=== PATIENT | male | born 1950 | race African-American/Black ===

== ENCOUNTER 2021-06-09 10:39 | Inpatient (IN) | payer OTHER ==
[~2021-06-09] VITALS: Ht 180.3 cm; Wt 66.0 kg
[~2021-06-09 10:39] MED LIST: METOPROLOL TARTRATE 25 MG TABLET GT SCH
--- NOTE | 2021-06-09 10:55 | NUR ---
[facility] FOR NOTED LOW O2 SATS AND TACHYCARDIA. PER EMS RECENTLY DISCHARGE [facility] OTHER HOSPITAL FOR PNA/SEPSIS. A/O X0. RECEIVED THE PATIENT IS ON OXYGEN NON-REBREATHER MASK 15L/MIN. ATTACHED THE PATIENT TO THE MONITOR. WARM BLANKET PROVIDED FOR COMFORT. WILL CONTINUE TO MONITOR THE PATIENT.
[2021-06-09] MEDS ORDERED: AMIN30LI2 GT (11:16)
[2021-06-09] MEDS ORDERED: ZINC1CAP3 GT (11:16)
[2021-06-09] MEDS ORDERED: MIDO10TA GT (11:16)
[2021-06-09] MEDS ORDERED: MULT-447 GT (11:16)
[2021-06-09] MEDS ORDERED: LACT-96 GT (11:16)
[2021-06-09] MEDS ORDERED: ASCO-352 GT (11:16)
[2021-06-09] MEDS ORDERED: BISA10SU11 RC (11:16)
[2021-06-09] MEDS ORDERED: SENN-261 GT (11:16)
[2021-06-09] MEDS ORDERED: NA P133E RC (11:16)
[2021-06-09] MEDS ORDERED: ACET-868 GT (11:16)
[2021-06-09] MEDS ORDERED: ACET-2605 GT (11:16)
[2021-06-09] MEDS ORDERED: MAGN400O6 GT (11:16)
--- NOTE | 2021-06-09 11:30 | NUR ---
unable to start iv. nursing sup called. midline nurse eta 1300
[2021-06-09] MEDS ORDERED: PIPERACILLIN /TAZOBACTAM 3.375 G in IV D5W 50 ML IV ONE (12:00)
[2021-06-09] MEDS ORDERED: CEFEPIME 1 GM in IV D5W 50 ML IV ONE (12:00)
[2021-06-09] MEDS ORDERED: IV NS 0.9% 2,000 ML IV ONE (13:30)
--- NOTE | 2021-06-09 13:42 | NUR ---
MIDLINE ORDERED PER DR LAW. THE ORDER IS READ BACK, VERIFIED. NOTED AND CARRIED OUT.
[2021-06-09 14:10] LABS: BASOPHILS % (AUTO) 0.3 % (0.0-2.0); MONOCYTES # (AUTO) 1.2 K/uL (0.1-1.30); NEUTROPHILS # (AUTO) 7.1 K/uL (1.8-8.9)
--- NOTE | 2021-06-09 14:19 | NUR ---
COVID ANTIGEN SWAB DONE AND SENT TO THE LAB.
--- NOTE | 2021-06-09 14:19 | NUR ---
THE PATIENT IS PLACED ON OXYGEN AT 10L/MIN VIA SIMPLE MASK AND SATURATION IS MAINTAINING AT 100%. WILL CONTINUE TO MONITOR THE PATIENT.
[2021-06-09 14:25] LABS: CALCIUM, SERUM 8.4 mg/dL (8.5-10.1); CARBON DIOXIDE 27 mmol/L (21-32); CHLORIDE 115 mmol/L (98-107); CREATININE 2.9 mg/dL (0.6-1.3); GLUCOSE 149 mg/dL (74-106); POTASSIUM 3.5 mmol/L (3.5-5.1); SODIUM SERUM 153 mmol/L (136-145); UREA NITROGEN, BLOOD 71 mg/dL (7-18)
--- NOTE | 2021-06-09 14:30 | NUR ---
COVID ANTIGEN SWAB DONE AND SENT TO THE LAB
[2021-06-09 15:12] LABS: C-REACTIVE PROTEIN 21.8 mg/dL (0.0-0.9)
[2021-06-09 15:16] LABS: EOSINOPHILS % (AUTO) 0.5 % (0.0-6.0); HEMATOCRIT 21 % (39-51); LYMPHOCYTES # (AUTO) 1.8 K/uL (0.8-4.8); LYMPHOCYTES % (AUTO) 17.6 % (20.0-44.0); MEAN CORPUSCULAR HGB CONC 32 g/dl (31.0-36.0); MEAN CORPUSCULAR VOLUME 77 fL (80-96); MONOCYTES % (AUTO) 11.7 % (2.0-12.0); NEUTROPHILS % (AUTO) 69.9 % (43.0-81.0); PLATELET COUNT (AUTO) 400 K/uL (150-450); RED BLOOD CELL COUNT(AUTO) 2.73 MIL/uL (4.5-6.0); WHITE BLOOD COUNT (AUTO) 10.1 K/uL (4.3-11.0)
[2021-06-09 15:25] LABS: CALCIUM, SERUM 8.4 mg/dL (8.5-10.1); POTASSIUM 3.6 mmol/L (3.5-5.1)
[2021-06-09 15:27] LABS: HEMOGLOBIN 6.6 g/dL (13.5-17.5)
[2021-06-09 15:32] LABS: ALBUMIN 1.8 g/dL (3.4-5.0); BILIRUBIN,TOTAL 0.5 mg/dL (0.2-1.0)
[2021-06-09 15:58] LABS: LYMPHOCYTES % (MANUAL) 20 % (16-48); MONOCYTES % (MANUAL) 10 % (0-11.0); NEUTROPHILS % (MANUAL) 70 (42-76)
--- NOTE | 2021-06-09 16:26 | NUR ---
DR CEVALLOS MADE AWARE OF HR 126 AND BP 113/81. NO NEW ORDERS AT THIS TIME.
--- NOTE | 2021-06-09 16:34 | NUR ---
WAITING FOR THE PHARMACY TO VERIFY METOPROLOL ORDER.
--- NOTE | 2021-06-09 16:34 | NUR ---
RECEIVED ANORDER FROM DR CEVALLOS: METOPROLOL 25 MG GT ONCE. THE ORDER IS READ BACK, VERIFIED. NOTED AND CARRIED OUT.
[2021-06-09] MEDS ORDERED: METOPROLOL TARTRATE 25 MG TABLET GT ONE (17:00)
[2021-06-09] MEDS ORDERED: METOPROLOL TARTRATE 25 MG TABLET ONE (17:07)
[2021-06-09] MEDS ORDERED: BISACODYL SUPP (10 MG) 10 MG/SUPP.RECT SUPP.RECT RC PRN (17:30)
[2021-06-09] MEDS ORDERED: MAGNESIUM HYDROXIDE 30 ML UDC GT PRN (17:30)
[2021-06-09] MEDS ORDERED: NA PHOS,M-B/NA PHOS,DI-BA 1 EA ENEMA RC PRN (17:30)
[2021-06-09 18:00] LABS: IRON, SERUM 14 ug/dl (50-175); TOTAL IRON BINDING CAPACITY 123 ug/dl (250-450)
[2021-06-09] MEDS ORDERED: VANCOMYCIN 1 GM in IV D5W 250 ML IV SCH (18:00)
--- NOTE | 2021-06-09 19:10 | NUR ---
VANCO AND ZOSYN DUE AT 1800 NOT ADMINISTERED YET BECAUSE THE PATIENT IS GETTING BLOOD TRANSFUSION. WILL ADMINISTER THE MEDS ONCE THE BLOOD TRANSFUSION IS DONE. DR ECVALLOS AWARE. WILL ENDORSE TO SWATCH PASTER.
[2021-06-09] MEDS ORDERED: PIPERACILLIN /TAZOBACTAM 3.375 G VIAL IV ONE (19:46)
[2021-06-09] MEDS ORDERED: VANCOMYCIN 1 GM VIAL ONE (19:46)
[2021-06-09] MEDS: PIPERACILLIN /TAZOBACTAM 2.25 G in IV D5W 50 ML IV SCH (19:52)
--- NOTE | 2021-06-09 19:52 | NUR ---
REPORT GIVEN TO NURSE VU FOR MARTIN
[2021-06-09] MEDS: SENNOSIDES 8.6 MG TABLET GT SCH (22:06)
[2021-06-10] MEDS: PIPERACILLIN /TAZOBACTAM 2.25 G in IV D5W 50 ML IV SCH ×3 (01:57→16:40)
[2021-06-10 05:09] LABS: BASOPHILS # (AUTO) 0.1 K/uL (0.0-0.2); BASOPHILS % (AUTO) 0.5 % (0.0-2.0); EOSINOPHILS % (AUTO) 0.9 % (0.0-6.0); HEMATOCRIT 22 % (39-51); HEMOGLOBIN 7.1 g/dL (13.5-17.5); LYMPHOCYTES # (AUTO) 1.8 K/uL (0.8-4.8); LYMPHOCYTES % (AUTO) 17.5 % (20.0-44.0); MEAN CORPUSCULAR HGB CONC 32 g/dl (31.0-36.0); MEAN CORPUSCULAR VOLUME 78 fL (80-96); MONOCYTES # (AUTO) 1.1 K/uL (0.1-1.30); MONOCYTES % (AUTO) 10.9 % (2.0-12.0); NEUTROPHILS # (AUTO) 7.2 K/uL (1.8-8.9); NEUTROPHILS % (AUTO) 70.2 % (43.0-81.0); PLATELET COUNT (AUTO) 385 K/uL (150-450); RED BLOOD CELL COUNT(AUTO) 2.85 MIL/uL (4.5-6.0); WHITE BLOOD COUNT (AUTO) 10.2 K/uL (4.3-11.0)
[2021-06-10 05:21] LABS: ALBUMIN 1.5 g/dL (3.4-5.0); ALKALINE PHOSPHATASE 74 U/L (46-116); ASPARTATE AMINOTRANSFERASE 18 U/L (15-37); BILIRUBIN,TOTAL 1.1 mg/dL (0.2-1.0); CALCIUM, SERUM 8.2 mg/dL (8.5-10.1); CARBON DIOXIDE 24 mmol/L (21-32); CHLORIDE 117 mmol/L (98-107); GLUCOSE 122 mg/dL (74-106); POTASSIUM 3.6 mmol/L (3.5-5.1); SODIUM SERUM 152 mmol/L (136-145); TOTAL PROTEIN, SERUM 6.7 g/dL (6.4-8.2)
[2021-06-10 05:23] LABS: ALANINE AMINOTRANSFERASE < 6 U/L (12-78)
[2021-06-10 05:24] LABS: UREA NITROGEN, BLOOD 87 mg/dL (7-18)
--- NOTE | 2021-06-10 05:25 | NUR ---
BUN 87
[2021-06-10 05:29] LABS: THYROID STIMULATING HORMONE 1.555 uIU/mL (0.358-3.74)
[2021-06-10] MEDS ORDERED: ZINC SULFATE 220 MG CAPSULE ONE (08:56)
[2021-06-10] MEDS ORDERED: MIDODRINE HCL (5MG) 5 MG TABLET ONE ×2 (08:56→13:32)
[2021-06-10] MEDS ORDERED: METOPROLOL TARTRATE 25 MG TABLET ONE (08:57)
[2021-06-10] MEDS ORDERED: ASCORBIC ACID 500 MG TABLET ONE (08:57)
[2021-06-10] MEDS ORDERED: MULTIVIT W/MINERALS 1 TAB TABLET ONE (08:57)
[2021-06-10] MEDS ORDERED: FAMOTIDINE/PF INJ 20 MG/2 ML VIAL IV ONE (08:58)
[2021-06-10] MEDS ORDERED: HEPARIN SODIUM, PORCINE 5000 UNITS/1 ML VIAL ONE ×2 (08:58→18:17)
[2021-06-10] MEDS ORDERED: MIDODRINE HCL (5MG) 5 MG TABLET GT SCH (09:00)
[2021-06-10] MEDS: HEPARIN SODIUM, PORCINE 5000 UNITS/1 ML VIAL SQ SCH ×2 (09:31→18:21)
[2021-06-10] MEDS: MULTIVIT W/MINERALS 1 TAB TABLET GT SCH (10:00)
[2021-06-10] MEDS: PROSTAT (PYXIS) 30 ML UDC GT SCH (10:00)
[2021-06-10] MEDS: FAMOTIDINE/PF INJ 20 MG/2 ML VIAL IV SCH (10:00)
[2021-06-10] MEDS: ASCORBIC ACID 500 MG TABLET GT SCH (10:00)
[2021-06-10] MEDS: ZINC SULFATE 220 MG CAPSULE GT SCH (10:00)
[2021-06-10] MEDS: METOPROLOL TARTRATE 25 MG TABLET GT SCH ×2 (10:00→17:00)
[2021-06-10 10:32] LABS: BAND % (MANUAL) 2 % (0.0-5.0); EOSINOPHILS % (MANUAL) 1 % (0-4); LYMPHOCYTES % (MANUAL) 15 % (16-48); MONOCYTES % (MANUAL) 7 % (0-11.0); NEUTROPHILS % (MANUAL) 75 (42-76)
[2021-06-10] MEDS ORDERED: JEVITY 1.2 CAL 1,000 ML BOTTLE GT PRN (11:30)
--- NOTE | 2021-06-10 11:39 | NUR ---
RD NOTIFIED RE: GT FEEDING. MADE AWARE RE: CURRENT GT FEEDING FROM SNF. AWAITING FOR RECOMENDATION. PRIMARY RN AWARE.
--- NOTE | 2021-06-10 11:51 | NUR ---
DR CEVALLOS CALLED, ORDERED ADDITIONAL UNIT OF BLOOD
[2021-06-10] MEDS: JEVITY 1.2 CAL 1,000 ML BOTTLE GT SCH (13:08)
--- NOTE | 2021-06-10 13:10 | NUR ---
PER BLOOD BANK, BLOOD NOT READY. THEY SAID THEY WILL CALL BACK
--- NOTE | 2021-06-10 13:54 | NUR ---
BLOOD BANK SAYS NO ORDER ON EMR SO THEY CANNOT DELIVER BLOOD. DR. CEVALLOS CONTACTED TO REORDER
[2021-06-10] MEDS: SOD FERRIC GLUC 125 MG in IV NS 0.9% 100 ML IV SCH ×2 (14:00→15:05)
[2021-06-10] MEDS: MIDODRINE HCL (5MG) 5 MG TABLET GT SCH ×2 (14:02→20:00)
--- NOTE | 2021-06-10 14:50 | NUR ---
WAITING FOR BLOOD BANK TO DELIVER
--- NOTE | 2021-06-10 15:10 | NUR ---
WAITING TO ADMINISTER ZOSYN ONCE Q6 HITS
[2021-06-10] MEDS ORDERED: VANCOMYCIN 0.75 GM in IV D5W 250 ML IV SCH (18:00)
--- NOTE | 2021-06-10 18:30 | NUR ---
BLOOD TRANSUFISION INITIATED. PT IDENTIFICATION VERIFIED, BLOOD CROSSMATCHED. VS: T 98.6. HR 115, RR 30, BP 114/69
--- NOTE | 2021-06-10 18:45 | NUR ---
NO APPRARENT REACTION TO BLOOD TRANSFUSION. T 98.5. HR 118. RR 39. BP 109/63. POX 100% ON RA. WILL CONTINUE TO MONITOR.
--- NOTE | 2021-06-10 18:47 | NUR ---
VANCOMYCIN AND ZOSYN HELD BC PT IS RECEIVING BLOOD TRANSFUSION.
[2021-06-10] MEDS: IV 1/2NS 1000 ML 1,000 ML IV PRN (21:45)
[2021-06-10] MEDS ORDERED: SENNOSIDES 8.6 MG TABLET ONE (22:04)
[2021-06-10] MEDS: SENNOSIDES 8.6 MG TABLET GT SCH (22:08)
[2021-06-11] MEDS: PIPERACILLIN /TAZOBACTAM 2.25 G in IV D5W 50 ML IV SCH ×3 (00:08→17:43)
[2021-06-11 05:34] LABS: BASOPHILS # (AUTO) 0.1 K/uL (0.0-0.2); BASOPHILS % (AUTO) 0.4 % (0.0-2.0); EOSINOPHILS % (AUTO) 2.2 % (0.0-6.0); HEMATOCRIT 25 % (39-51); HEMOGLOBIN 7.7 g/dL (13.5-17.5); LYMPHOCYTES # (AUTO) 2.1 K/uL (0.8-4.8); LYMPHOCYTES % (AUTO) 16.4 % (20.0-44.0); MEAN CORPUSCULAR HGB CONC 31 g/dl (31.0-36.0); MEAN CORPUSCULAR VOLUME 80 fL (80-96); MONOCYTES # (AUTO) 1.1 K/uL (0.1-1.30); NEUTROPHILS # (AUTO) 9.1 K/uL (1.8-8.9); PLATELET COUNT (AUTO) 394 K/uL (150-450); WHITE BLOOD COUNT (AUTO) 12.6 K/uL (4.3-11.0)
[2021-06-11 06:17] LABS: CALCIUM, SERUM 8.3 mg/dL (8.5-10.1); CREATININE 3.6 mg/dL (0.6-1.3); POTASSIUM 3.6 mmol/L (3.5-5.1)
[2021-06-11] MEDS: IV 1/2NS 1000 ML 1,000 ML IV PRN (06:50)
--- NOTE | 2021-06-11 07:33 | NUR ---
ASSESSED PT ON BED ASLEEP EASILY AROUSABLE, AAOX0 NON VERBAL, NOT IN RESPRIATORY DISTRESS, V/S STABLE, KEPT RESTED AND COMFORTABLE. WILL CONTINUE TO MONITOR.
[2021-06-11] MEDS ORDERED: METOPROLOL TARTRATE 25 MG TABLET ONE (09:01)
[2021-06-11] MEDS ORDERED: MIDODRINE HCL (5MG) 5 MG TABLET ONE (09:03)
[2021-06-11] MEDS ORDERED: MULTIVIT W/MINERALS 1 TAB TABLET ONE (09:04)
[2021-06-11] MEDS ORDERED: ASCORBIC ACID 500 MG TABLET ONE (09:04)
[2021-06-11] MEDS ORDERED: FAMOTIDINE/PF INJ 20 MG/2 ML VIAL IV ONE (09:04)
[2021-06-11] MEDS ORDERED: ZINC SULFATE 220 MG CAPSULE ONE (09:04)
[2021-06-11] MEDS ORDERED: HEPARIN SODIUM, PORCINE 5000 UNITS/1 ML VIAL ONE (09:05)
[2021-06-11] MEDS: PROSTAT (PYXIS) 30 ML UDC GT SCH (09:06)
[2021-06-11] MEDS: MULTIVIT W/MINERALS 1 TAB TABLET GT SCH (09:06)
[2021-06-11] MEDS: METOPROLOL TARTRATE 25 MG TABLET GT SCH ×2 (09:06→17:26)
[2021-06-11] MEDS: FAMOTIDINE/PF INJ 20 MG/2 ML VIAL IV SCH (09:06)
[2021-06-11] MEDS: ZINC SULFATE 220 MG CAPSULE GT SCH (09:06)
[2021-06-11] MEDS: ASCORBIC ACID 500 MG TABLET GT SCH (09:06)
[2021-06-11] MEDS: MIDODRINE HCL (5MG) 5 MG TABLET GT SCH (09:06)
[2021-06-11] MEDS: HEPARIN SODIUM, PORCINE 5000 UNITS/1 ML VIAL SQ SCH ×2 (09:19→17:28)
--- NOTE | 2021-06-11 10:09 | NUR ---
WOUND CARE CONSULT: PT PRESENTS WITH SACRAL ULCER AND DISCOLORATION/SCARRING/ESCHARS TO RT LOWER LEG, PRESENT ON ADMISSION. DR MCDONNELL AND DR DELUNA NOTIFIED OF SURGICAL AND DPM CONSULT REQUESTS. 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 MD IN AGREEMENT WITH PLAN OF CARE.
[2021-06-11] MEDS: Z GUARD REMEDY 4 OZ OINT TP SCH (10:27)
[2021-06-11] MEDS: HYDROGEL DRESSING 90 GM TUBE TP SCH (10:27)
[2021-06-11] MEDS ORDERED: HYDROGEL DRESSING 90 GM TUBE TP PRN (10:30)
[2021-06-11] MEDS ORDERED: Z GUARD REMEDY 4 OZ OINT TP PRN (10:30)
--- NOTE | 2021-06-11 10:52 | NUR ---
REPORT GIVEN TO MAYA HERNADEZ FOR MARTIN.
[2021-06-11 12:00] LABS: EOSINOPHILS % (MANUAL) 3 % (0-4); LYMPHOCYTES % (MANUAL) 14 % (16-48); MONOCYTES % (MANUAL) 9 % (0-11.0); NEUTROPHILS % (MANUAL) 74 (42-76)
[2021-06-11] MEDS: SOD FERRIC GLUC 125 MG in IV NS 0.9% 100 ML IV SCH (14:33)
[2021-06-11 16:00] VITALS: BP 111/67
--- NOTE | 2021-06-11 18:27 | NUR ---
RN CLOSING NOTES PT CAME FROM [facility] FOR LOW 02 SAT AND TACHYCARDIA. PT IS FULL CODE AND ON 2L NC. CURRENTLY SATING 99%. PT IS A/O X0, PT WILL RESPOND TO VERBAL COMMANDS AND SHAKE HEAD YES OR NO. ON SACRAL AREA, PRESSURE ULCER NOTED. POSSIBLE STAGE 3. PT IS ON GTUBE WITH JEVITY RUNNING 50CC/HR. PT HAS CELSO MIDLINE. VEIN IS HARD TO GET FLOW DUE TO CONTRACTURE. REPORT WAS GIVEN BY BLANCA IN ER. ALL SAFETY PRECAUTIONS IN PLACE, BED IN LOWEST LOCKED POSITION, SIDE RAILS UP X3, CALL LIGHT WITHIN REACH. WILL ENDORSE TO JAVA GRAILS DEVELOPER NURSE FOR MARTIN.
[2021-06-11 20:00] VITALS: BP 103/68
--- NOTE | 2021-06-11 20:30 | NUR ---
CONTINUITY OF CARE Patient in bed, non verbal, opens eyes. On room air, appears comfortable in bed, no respiratory distress. CELSO midline intact, ongoing IVF. On Gtube feeding. Edema BLE elevated on pillows. Covid PCR test pending result. Will cont to provide care.
[2021-06-11] MEDS: SENNOSIDES 8.6 MG TABLET GT SCH (21:31)
[2021-06-12] MEDS: PIPERACILLIN /TAZOBACTAM 2.25 G in IV D5W 50 ML IV SCH ×5 (00:19→23:03)
[2021-06-12 01:07] VITALS: BP 90/56
[2021-06-12] MEDS: IV 1/2NS 1000 ML 1,000 ML IV PRN (05:31)
[2021-06-12 05:50] VITALS: BP 103/62
--- NOTE | 2021-06-12 05:59 | NUR ---
END OF SHIFT REPORT Patient is nonverbal. Bedbound. Sacral stage 3, wound care done. CELSO midline intact, ongoing IVF. On IV abx Afebrile. Had BM this shift. Oxygen saturation in high 90's on Room air. Turned and repositioned. Covid PCR test pending result. Will endorse to oncoming RN.
[2021-06-12 06:50] LABS: BASOPHILS % (AUTO) 0.4 % (0.0-2.0); EOSINOPHILS % (AUTO) 2.9 % (0.0-6.0); HEMATOCRIT 22 % (39-51); HEMOGLOBIN 7.1 g/dL (13.5-17.5); LYMPHOCYTES # (AUTO) 2.1 K/uL (0.8-4.8); LYMPHOCYTES % (AUTO) 17.2 % (20.0-44.0); MEAN CORPUSCULAR HGB CONC 32 g/dl (31.0-36.0); MEAN CORPUSCULAR VOLUME 79 fL (80-96); MONOCYTES # (AUTO) 1.4 K/uL (0.1-1.30); MONOCYTES % (AUTO) 11.1 % (2.0-12.0); NEUTROPHILS # (AUTO) 8.5 K/uL (1.8-8.9); NEUTROPHILS % (AUTO) 68.4 % (43.0-81.0); PLATELET COUNT (AUTO) 384 K/uL (150-450); RED BLOOD CELL COUNT(AUTO) 2.82 MIL/uL (4.5-6.0); WHITE BLOOD COUNT (AUTO) 12.4 K/uL (4.3-11.0)
--- NOTE | 2021-06-12 06:53 | NUR ---
VANCOMYCIN THOUGH Vancomycin through pending result. Vancomycin IV due at 0600. Will endorse to oncoming RN.
[2021-06-12 07:27] LABS: BILIRUBIN,TOTAL 0.6 mg/dL (0.2-1.0); CALCIUM, SERUM 8.2 mg/dL (8.5-10.1); CREATININE 3.5 mg/dL (0.6-1.3); POTASSIUM 3.2 mmol/L (3.5-5.1); TOTAL PROTEIN, SERUM 6.2 g/dL (6.4-8.2)
--- NOTE | 2021-06-12 07:30 | NUR ---
[facility]PINE PATROLLER CLOSING NOTES RECEIVED PATIENT ON BED AWAKE AND NON-VERBAL. ON ROOM AIR TOLERATING WELL. NO SOB NOTED. NOT IN DISTRESS. WITH IV ACCESS AT RIGHT UPPER ARM MIDLINE WITH 1/2NS AT 100ML/HR INFUSING WELL. ON GTUBE FEEDING WITH JEVITY AT 50CC/HR. SAFETY PRECAUTIONS IN PLACED. BED IN LOWEST LOCKED POSITION, SIDE RAILS UP X3, CALL LIGHT WITHIN REACH. WILL CONTINUE TO MONITOR. Addendum: 06/12/21 at 1500 by KELTON PANIAGUA RN ERROR
--- NOTE | 2021-06-12 07:30 | NUR ---
AIRLINE PILOT FLIGHT INSTRUCTOR OPENING NOTES RECEIVED PATIENT ON BED AWAKE AND NON-VERBAL. ON ROOM AIR TOLERATING WELL. NO SOB NOTED. NOT IN DISTRESS. WITH IV ACCESS AT RIGHT UPPER ARM MIDLINE WITH 1/2NS AT 100ML/HR INFUSING WELL. ON GTUBE FEEDING WITH JEVITY AT 50CC/HR. SAFETY PRECAUTIONS IN PLACED. BED IN LOWEST LOCKED POSITION, SIDE RAILS UP X3, CALL LIGHT WITHIN REACH. WILL CONTINUE TO MONITOR.
[2021-06-12 08:00] VITALS: BP 91/56
[2021-06-12] MEDS: VANCOMYCIN 0.75 GM in IV D5W 250 ML IV SCH (08:21)
[2021-06-12] MEDS: ZINC SULFATE 220 MG CAPSULE GT SCH (08:26)
[2021-06-12] MEDS: FAMOTIDINE/PF INJ 20 MG/2 ML VIAL IV SCH (08:26)
[2021-06-12] MEDS: MULTIVIT W/MINERALS 1 TAB TABLET GT SCH (08:26)
[2021-06-12] MEDS: HEPARIN SODIUM, PORCINE 5000 UNITS/1 ML VIAL SQ SCH ×2 (08:27→16:36)
[2021-06-12] MEDS: ASCORBIC ACID 500 MG TABLET GT SCH (08:27)
[2021-06-12] MEDS: HYDROGEL DRESSING 90 GM TUBE TP SCH (08:37)
[2021-06-12] MEDS: METOPROLOL TARTRATE 25 MG TABLET GT SCH ×2 (08:37→16:46)
[2021-06-12] MEDS: Z GUARD REMEDY 4 OZ OINT TP SCH (08:37)
[2021-06-12 08:43] LABS: ALBUMIN 1.4 g/dL (3.4-5.0)
[2021-06-12] MEDS ORDERED: POTASSIUM CHLORIDE 20 MEQ TAB.PRT.SR PO ONE (10:00)
[2021-06-12] MEDS: MIDODRINE HCL (5MG) 5 MG TABLET PO SCH ×3 (10:56→16:35)
[2021-06-12] MEDS: PROSTAT (PYXIS) 30 ML UDC GT SCH (10:57)
[2021-06-12] MEDS: IV D5W 1,000 ML IV SCH ×2 (10:58→20:30)
[2021-06-12 12:00] VITALS: BP 97/59
--- NOTE | 2021-06-12 15:00 | NUR ---
BREAKER OILER OPENING NOTES RECEIVED PATIENT ON BED AWAKE AND NON-VERBAL. ON ROOM AIR TOLERATING WELL. NO SOB NOTED. NOT IN DISTRESS. WITH IV ACCESS AT RIGHT UPPER ARM MIDLINE WITH 1/2NS AT 100ML/HR INFUSING WELL. ON GTUBE FEEDING WITH JEVITY AT 50CC/HR. SAFETY PRECAUTIONS IN PLACED. BED IN LOWEST LOCKED POSITION, SIDE RAILS UP X3, CALL LIGHT WITHIN REACH. WILL CONTINUE TO MONITOR. Addendum: 06/12/21 at 1501 by KELTON PANIAGUA RN ERROR.
[2021-06-12] MEDS: SOD FERRIC GLUC 125 MG in IV NS 0.9% 100 ML IV SCH (15:18)
[2021-06-12 16:00] VITALS: BP 99/60
--- NOTE | 2021-06-12 18:41 | NUR ---
MOUNTER CLARINETS CLOSING NOTES PATIENT ON BED AWAKE AND NON-VERBAL. ON ROOM AIR TOLERATING WELL. NO SOB NOTED. NOT IN DISTRESS. WITH IV ACCESS AT RIGHT UPPER ARM MIDLINE WITH D5W AT 100ML/HR INFUSING WELL. ON TELE MONITOR CURRENTLY READING SINUS RHYTHM AT 85BPM. ON G-TUBE FEEDING WITH JEVITY AT 50CC/HR. DUE MEDS GIVEN. SAFETY PRECAUTIONS IN PLACED. BED IN LOWEST LOCKED POSITION, SIDE RAILS UP X3, CALL LIGHT WITHIN REACH. WILL ENDORSE TO NEXT SHIFT FOR MARTIN.
[2021-06-12] MEDS: JEVITY 1.2 CAL 1,000 ML BOTTLE GT SCH (18:48)
[2021-06-12 20:00] VITALS: BP 131/81
[2021-06-12] MEDS: SENNOSIDES 8.6 MG TABLET GT SCH (21:22)
--- NOTE | 2021-06-12 21:47 | NUR ---
Clarified with Dr. Miller parameters for transfusion on standing order. Doctor stated via secure message that he wants 1 unit pRBCs transfused now and not a standing order. In Dr notes he also states that he ordered 1 unit pRBCs for today. Will call lab. Patient's Hgb 7.1 down from 7.7 yesterday.
--- NOTE | 2021-06-12 21:57 | NUR ---
Called lab but they stated there is no one to give out blood at this time but they should be there soon.
--- NOTE | 2021-06-12 22:15 | NUR ---
Called lab still no one to give out blood.
--- NOTE | 2021-06-12 22:47 | NUR ---
Blood personal banking representative called about 1 unit pRBC order, states she will prepare blood but it is not ready yet.
--- NOTE | 2021-06-12 22:47 | NUR ---
Clarified with Dr. Miller parameters for transfusion on standing order. Doctor stated via secure message that he wants 1 unit pRBCs transfused now and not a standing order. In Dr notes he also states that he ordered 1 unit pRBCs for today. Will call lab. Patient's Hgb 7.1 down from 7.7 yesterday. Addendum: 06/12/21 at 5374 by SARINA OBREGON RN [id number]
--- NOTE | 2021-06-12 23:15 | NUR ---
Blood manager business banking stated that type and screen , new type and screen reordered STAT.
[2021-06-13] VITALS (12 sets, daily range): BP systolic 107–156; BP diastolic 70–96
--- NOTE | 2021-06-13 02:18 | NUR ---
Blood transfusion started 214, VS WNL.
--- NOTE | 2021-06-13 05:08 | NUR ---
Transfusion ended. tolerated well. VS WNL.
[2021-06-13] MEDS: PIPERACILLIN /TAZOBACTAM 2.25 G in IV D5W 50 ML IV SCH ×3 (05:23→17:01)
[2021-06-13] MEDS: IV D5W 1,000 ML IV SCH ×2 (05:24→16:08)
--- NOTE | 2021-06-13 05:58 | NUR ---
Patient found vomiting total approx. 100-200cc light to medium brown emesis, patient sat fully upright, feeding stopped, mouth suctioned when emesis ceased. Notified Dr. Miller with new order for zofran 4mg Q6H IV PRN n/v. Addendum: 06/13/21 at 0614 by SARINA OBREGON RN no "grounds" or particles.
[2021-06-13] MEDS ORDERED: ONDANSETRON HCL/PF 4 MG/2 ML VIAL IV PRN (06:00)
--- NOTE | 2021-06-13 07:03 | NUR ---
No further episodes of vomit. Patient is alert to loud noise and touch. Currently is in no signs of distress. D5W infusing at 100cc/hr.
--- NOTE | 2021-06-13 07:34 | NUR ---
received feeding on hold r/t vomiting,no acute distress.
[2021-06-13 08:23] LABS: CALCIUM, SERUM 8.2 mg/dL (8.5-10.1); CREATININE 3.4 mg/dL (0.6-1.3); POTASSIUM 3.6 mmol/L (3.5-5.1)
[2021-06-13] MEDS: MULTIVIT W/MINERALS 1 TAB TABLET GT SCH (08:24)
[2021-06-13] MEDS: FAMOTIDINE/PF INJ 20 MG/2 ML VIAL IV SCH (08:24)
[2021-06-13] MEDS: ACETAMINOPHEN 650 MG/20.3 ML UDC GT PRN ×2 (08:24→14:39)
[2021-06-13] MEDS: ASCORBIC ACID 500 MG TABLET GT SCH (08:24)
[2021-06-13] MEDS: ZINC SULFATE 220 MG CAPSULE GT SCH (08:25)
[2021-06-13] MEDS: PROSTAT (PYXIS) 30 ML UDC GT SCH (08:25)
[2021-06-13] MEDS: METOPROLOL TARTRATE 25 MG TABLET GT SCH ×2 (08:25→16:12)
[2021-06-13] MEDS: MIDODRINE HCL (5MG) 5 MG TABLET PO SCH (08:26)
[2021-06-13] MEDS: HEPARIN SODIUM, PORCINE 5000 UNITS/1 ML VIAL SQ SCH ×2 (08:27→16:14)
[2021-06-13] MEDS: HYDROGEL DRESSING 90 GM TUBE TP SCH (08:28)
[2021-06-13] MEDS: Z GUARD REMEDY 4 OZ OINT TP SCH (08:28)
[2021-06-13 08:29] LABS: BASOPHILS % (AUTO) 0.3 % (0.0-2.0); EOSINOPHILS % (AUTO) 2.4 % (0.0-6.0); HEMATOCRIT 27 % (39-51); HEMOGLOBIN 8.6 g/dL (13.5-17.5); LYMPHOCYTES # (AUTO) 2.3 K/uL (0.8-4.8); LYMPHOCYTES % (AUTO) 17.8 % (20.0-44.0); MEAN CORPUSCULAR HGB CONC 32 g/dl (31.0-36.0); MEAN CORPUSCULAR VOLUME 81 fL (80-96); MONOCYTES # (AUTO) 1.5 K/uL (0.1-1.30); MONOCYTES % (AUTO) 11.3 % (2.0-12.0); NEUTROPHILS % (AUTO) 68.2 % (43.0-81.0); PLATELET COUNT (AUTO) 377 K/uL (150-450); RED BLOOD CELL COUNT(AUTO) 3.34 MIL/uL (4.5-6.0); WHITE BLOOD COUNT (AUTO) 13.2 K/uL (4.3-11.0)
--- NOTE | 2021-06-13 09:09 | NUR ---
labs relayed to dr. steven potts for discharge,pcr still pending. Cm notified
--- NOTE | 2021-06-13 14:04 | NUR ---
report given to may from dylan oshea,sister aware of discharge.
[2021-06-13] MEDS: SOD FERRIC GLUC 125 MG in IV NS 0.9% 100 ML IV SCH (15:00)
--- NOTE | 2021-06-13 15:29 | NUR ---
per polly sister refused country dorie again ,awaits further instruction for placement.
--- NOTE | 2021-06-13 15:39 | NUR ---
per pharmacy no need to do vanco through level,ok to give dose.
[2021-06-13] MEDS: JEVITY 1.2 CAL 1,000 ML BOTTLE GT SCH (17:00)
--- NOTE | 2021-06-13 17:01 | NUR ---
aware pending discharge r/t placement issue.
[2021-06-13] MEDS: VANCOMYCIN 0.75 GM in IV D5W 250 ML IV SCH (17:51)
--- NOTE | 2021-06-13 17:54 | NUR ---
report given to lin four season per child welfare caseworker instructions.and per polly dennison sister agreed.awaits ambulance.
== END 2021-06-13 19:04 | DRG 871 ==
LOC: ER 10:44 → TRANSITION 16:58 → TELE1 06-11 10:48 → MEDSG1 06-13 15:51
PROVIDERS: ADMIT Internal Medicine; ATTEND Internal Medicine
PROC: 30233N1 Transfusion of Nonautologous Red Blood Cells into Peripheral Vein, Percutaneous Approach (ICD-10-PCS; principal; 2021-06-09)
PROC: 05H933Z Insertion of Infusion Device into Right Brachial Vein, Percutaneous Approach (ICD-10-PCS; 2021-06-09)
DX: A41.9 Sepsis, unspecified organism (principal); L89.154 Pressure ulcer of sacral region, stage 4; E43 Unspecified severe protein-calorie malnutrition; J69.0 Pneumonitis due to inhalation of food and vomit; J96.01 Acute respiratory failure with hypoxia; R53.2 Functional quadriplegia; N17.9 Acute kidney failure, unspecified; G91.9 Hydrocephalus, unspecified; E87.0 Hyperosmolality and hypernatremia; D64.9 Anemia, unspecified; I10 Essential (primary) hypertension; Z20.822 Contact with and (suspected) exposure to COVID-19; Z86.73 Personal history of transient ischemic attack (TIA), and cerebral infarction without residual deficits; N40.0 Benign prostatic hyperplasia without lower urinary tract symptoms; R13.10 Dysphagia, unspecified; K44.9 Diaphragmatic hernia without obstruction or gangrene; Z79.899 Other long term (current) drug therapy; E86.0 Dehydration; Z66 Do not resuscitate; Y95 Nosocomial condition; Z93.1 Gastrostomy status; Z98.890 Other specified postprocedural states
CPT/HCPCS: 36415; 71045-TC; 80048-TC; 80053-TC; 80202-TC; 82550-TC; 83540-TC; 83615-TC; 83880; 84443-TC; 84484-TC; 85025-TC; 86140-TC; 86850-TC; 87081-TC; A6248; A6403; C9803; G0378; J0692; J1644; J2405; J2543; J2916; J3370; J3490; J7030; J7050; J7060; J7070; P9016; U0003